=== PATIENT | female | born 1975 | race Caucasian/White ===

== ENCOUNTER 2020-06-12 10:00 | Outpatient (RCR) | payer BC | END 2020-06-22 | LOC: PT 10:00 | PROVIDERS: ATTEND Neurological Surgery | DX: M43.16 Spondylolisthesis, lumbar region (principal) ==

== ENCOUNTER → 2020-10-19 | Outpatient (CLI) | payer BC | LOC: RAD 17:35 | PROVIDERS: ATTEND Neurological Surgery | DX: M43.16 Spondylolisthesis, lumbar region (principal); M43.26 Fusion of spine, lumbar region | CPT/HCPCS: 72110 ==

== ENCOUNTER → 2023-06-14 | Day surgery (SDC) | payer BC ==
[~2023-06-14] MED LIST: ACETAMINOPHEN-1 EAC4 PO; BUPROPION XL150 MG PO; BUSPIRONE HCL10 MG PO; FENTANYL CITRATE/PF 100MCG/2 ML INJ ONE; GLUCAGON FOR INJ 1 MG VIAL ONE; HAIR, SKIN & N1 EACH PO; LACTATED RINGER'S 1,000 ML ONE; LIDOCAINE HCL 2% LOCAL INJ 5 ML SDV VIAL INJ ONE; MIDAZOLAM HCL 2 MG/2 ML VIAL ONE; MULTI-VITAMIN1 EACH PO; PROPOFOL IV EMULSION 10 MG/ML 20 ML VIAL ONE; VENLAFAXINE HCL75 MG PO; VITAMIN B122500 MCG PO
[2023-06-14 12:42] VITALS: TEMP 97.8
[2023-06-14 13:03] VITALS: BP 116/87; PULSE 71; RESP 18; O2SAT 97
== END | disposition home or self-care (01) ==
LOC: OR 09:51
PROVIDERS: ATTEND Internal Medicine Gastroenterology
DX: Z12.11 Encounter for screening for malignant neoplasm of colon (principal); K63.5 Polyp of colon; K57.30 Diverticulosis of large intestine without perforation or abscess without bleeding; K63.89 Other specified diseases of intestine; K21.9 Gastro-esophageal reflux disease without esophagitis; R09.A2 Foreign body sensation, throat; D64.9 Anemia, unspecified; F41.9 Anxiety disorder, unspecified; Z79.899 Other long term (current) drug therapy
CPT/HCPCS: 45385; J1610; J2001; J2250; J2704; J3010; J7121; 45378

== ENCOUNTER → 2024-12-19 | Day surgery (SDC) | payer BC ==
[~2024-12-19] MED LIST changes: +HYOSCYAMINE SULFATE 0.5 MG/ML INJ ONE; -MIDAZOLAM HCL 2 MG/2 ML VIAL ONE; +ONDANSETRON HCL INJ 2MG/ML 2ML 2 MG/ML VIAL ONE; +PROPOFOL IV EMULSION 50 ML IV ONE
[2024-12-19] MEDS: FENTANYL CITRATE/PF 100MCG/2 ML INJ ONE (13:00)
[2024-12-19 13:20] VITALS: BP 105/71; PULSE 91; RESP 15; TEMP 97.6; O2SAT 99
[2024-12-25 08:13] LABS: ENDOMYSIAL ANTIBODIES, IGA Negative (Negative)
[2024-12-25 08:15] LABS: IMMUNOGLOBULIN A 129 mg/dL (87-352); TISSUE TRANSGLUTAMINASE IGA AB <2 U/mL (0-3)
== END | disposition home or self-care (01) ==
LOC: OR 10:39
PROVIDERS: ATTEND Internal Medicine Gastroenterology
DX: D64.89 Other specified anemias (principal); Z86.0100 Personal history of colon polyps, unspecified; K25.9 Gastric ulcer, unspecified as acute or chronic, without hemorrhage or perforation; K31.89 Other diseases of stomach and duodenum; K58.9 Irritable bowel syndrome, unspecified; K57.30 Diverticulosis of large intestine without perforation or abscess without bleeding; K63.89 Other specified diseases of intestine; Z98.84 Bariatric surgery status; Z71.89 Other specified counseling; F41.9 Anxiety disorder, unspecified; Z79.899 Other long term (current) drug therapy; Z68.29 Body mass index [BMI] 29.0-29.9, adult; Z71.3 Dietary counseling and surveillance
CPT/HCPCS: 43239; 45380; 82784; 83516; 86256; J1610; J1980; J2003; J2405; J2470; J2704 ×2; J3010; J7121; 45378; 45385